=== PATIENT | female | born 1965 | race Two or more races ===

== ENCOUNTER 2016-05-30 11:23 | Inpatient (IN) | payer OTHER ==
[~2016-05-30] VITALS: Ht 167.6 cm; Wt 82.5 kg
[2016-05-30 12:26] LABS: Basophils # (auto) 0 uL; Basophils % (auto) 0.4 % (0.0-2.0); DEFINITIVE VIEW TRANSMISSION; Eosinophils # (auto) 0.2 uL; Eosinophils % (auto) 2.5 % (0.0-7.0); Hematocrit 41.8 % (36.0-46.0); Hemoglobin 13.4 g/dL (12.2-16.2); Lymphocytes # (auto) 2.4 uL; Lymphocytes % (auto) 31.4 % (10.0-50.0); Mean Corpuscular Hemoglobin 25.1 pg (28.0-32.0); Mean Corpuscular Hgb Conc. 31.9 g/dL (32.0-36.0); Mean Corpuscular Volume 78.5 fL (80.0-100.0); Mean Platelet Volume 9.6 fL (7.4-10.4); Monocytes # (auto) 0.4 uL; Monocytes % (auto) 5.1 % (0.0-12.0); Neutrophils # (auto) 4.6 uL; Neutrophils % (auto) 60.6 % (37.0-80.0); Platelet Count (auto) 267 10^3/uL (140-450); Red Cell Distribution Width 14.5 % (11.6-16.0); White Blood Cell 7.7 10^3/uL (4.4-10.8)
[2016-05-30 12:52] LABS: Albumin 3.8 g/dL (3.4-5.0); BUN/Creatinine Ratio 10.4; Bilirubin, Total 0.4 mg/dL (0.2-1.0); Calcium 8.9 mg/dL (8.5-10.1); Magnesium 2.1 mg/dL (1.6-2.6); Total Protein 7.8 g/dL (6.4-8.2)
[2016-05-30 13:28] LABS: Urine Bilirubin Negative (Negative); Urine Blood Negative /uL (Negative); Urine Color Yellow (Yellow); Urine Ketone Negative (Negative); Urine Nitrite Negative (Negative); Urine RBC 4 /hpf (0 - 4); Urine Squamous Epithelial Cell FEW /hpf (<5); Urine Urobilinogen Normal (Negative); Urine pH 5.5 (5.0-8.0)
[2016-05-30 13:30] LABS: Urine Glucose 4+ mg/dL (Normal)
[2016-05-30] MEDS ORDERED: SODIUM CHLORIDE 0.9% 1,000 ML IV ONE ×2 (15:55→17:41)
[2016-05-30] MEDS ORDERED: InsuLIN REG 1unit/0.01ml Soln (100units/ml) IV ONE ×2 (16:00→17:45)
[2016-05-30] MEDS ORDERED: cefTRIAXone 1GM/50ML D5W 50 ML IV ONE (19:45)
[2016-05-30] MEDS ORDERED: ONDANSETRON HCL 4 MG/2 ML VIAL IV PRN (20:00)
[2016-05-30] MEDS ORDERED: ACETAMINOPHEN 325 MG TAB PO PRN (20:00)
[2016-05-30] MEDS ORDERED: DOCUSATE SOD 100 MG CAP PO PRN (20:00)
[2016-05-30] MEDS ORDERED: DEXTROSE (50%) 50ML SYRG IV PRN (20:00)
[2016-05-30] MEDS ORDERED: hydrOXYzine PAMOATE 25 MG CAP PO PRN (20:00)
[2016-05-30] MEDS ORDERED: MORPHINE SULF INJ 2 MG/ML SYRINGE 1ML IV PRN (20:00)
[2016-05-30] MEDS ORDERED: MULTIPLE VITAMIN TAB PO SCH (20:15)
[2016-05-30] MEDS ORDERED: PANTOPRAZOLE 40 MG TAB PO ONE (20:15)
[2016-05-30] MEDS ORDERED: PANTOPRAZOLE 40 MG TAB PO SCH (20:15)
[2016-05-30] MEDS ORDERED: MULTIPLE VITAMIN TAB PO ONE (20:15)
[2016-05-30 22:00] VITALS: BP 113/69
[2016-05-30] MEDS ORDERED: FAMOTIDINE 20 MG TAB PO SCH (22:00)
[2016-05-30] MEDS: ACCU-CHEK COMFORT CURVE STRIP VI SCH (22:57)
[2016-05-30] MEDS: InsuLIN REG 1unit/0.01ml Soln (100units/ml) SC SCH (23:01)
[2016-05-30] MEDS: HYDROcodone-ACET 5/325MG TAB PO PRN (23:02)
[2016-05-30] MEDS: SODIUM CHLOR 0.9% PF (SALINE LOCK) 10ML VIAL IV SCH (23:04)
[2016-05-31] MEDS: ZOLPIDEM TARTRATE 5 MG TAB PO PRN ×2 (00:13→22:15)
[2016-05-31] MEDS ORDERED: LISI-275 PO (05:06)
[2016-05-31] MEDS ORDERED: METF-312 PO (05:06)
[2016-05-31] MEDS ORDERED: HYDR-3682 PO (05:06)
[2016-05-31] MEDS ORDERED: ZOLP10TA PO (05:06)
[2016-05-31 05:24] LABS: Basophils # (auto) 0 uL; Basophils % (auto) 0.5 % (0.0-2.0); DEFINITIVE VIEW TRANSMISSION; Eosinophils # (auto) 0.2 uL; Eosinophils % (auto) 3.2 % (0.0-7.0); Hematocrit 34.2 % (36.0-46.0); Hemoglobin 11.1 g/dL (12.2-16.2); Lymphocytes # (auto) 2.5 uL; Lymphocytes % (auto) 37.5 % (10.0-50.0); Mean Corpuscular Hemoglobin 25.7 pg (28.0-32.0); Mean Corpuscular Hgb Conc. 32.4 g/dL (32.0-36.0); Mean Corpuscular Volume 79.4 fL (80.0-100.0); Mean Platelet Volume 9.8 fL (7.4-10.4); Monocytes # (auto) 0.4 uL; Monocytes % (auto) 6.2 % (0.0-12.0); Neutrophils # (auto) 3.5 uL; Neutrophils % (auto) 52.6 % (37.0-80.0); Platelet Count (auto) 221 10^3/uL (140-450); Red Cell Distribution Width 14.6 % (11.6-16.0); White Blood Cell 6.7 10^3/uL (4.4-10.8)
[2016-05-31 05:30] VITALS: BP 113/68
[2016-05-31 05:38] LABS: BUN/Creatinine Ratio 13.1; Bilirubin, Total 0.3 mg/dL (0.2-1.0); Calcium 7.9 mg/dL (8.5-10.1); Potassium 3.6 mmol/L (3.5-5.1); Total Protein 6.1 g/dL (6.4-8.2)
[2016-05-31] MEDS: SODIUM CHLOR 0.9% PF (SALINE LOCK) 10ML VIAL IV SCH ×3 (06:25→22:15)
[2016-05-31] MEDS: ACCU-CHEK COMFORT CURVE STRIP VI SCH ×4 (06:25→22:15)
[2016-05-31] MEDS: InsuLIN REG 1unit/0.01ml Soln (100units/ml) SC SCH ×4 (06:25→22:26)
[2016-05-31 08:00] VITALS: BP 103/65
[2016-05-31] MEDS: MULTIPLE VITAMIN TAB PO SCH (08:27)
[2016-05-31] MEDS: PANTOPRAZOLE 40 MG TAB PO SCH (08:27)
[2016-05-31] MEDS: LISINOPRIL 20 MG TAB PO SCH (08:28)
[2016-05-31] MEDS: metFORMIN HYDROCHLORIDE 500 MG TAB PO SCH ×2 (08:28→17:45)
[2016-05-31] MEDS: cefTRIAXone 1GM/50ML D5W 50 ML IV SCH (08:28)
[2016-05-31] MEDS: HYDROcodone-ACET 5/325MG TAB PO PRN (08:46)
[2016-05-31 12:30] VITALS: BP 102/70
[2016-05-31 17:11] VITALS: BP 104/69
[2016-05-31] MEDS: Boost Glucose Control 8 Ounces PO SCH (18:00)
[2016-05-31] MEDS ORDERED: PSEUDOEPHEDRINE HCL 30 MG TAB PO PRN (18:15)
[2016-05-31 22:00] VITALS: BP 115/66
[2016-05-31] MEDS ORDERED: hydrOXYzine PAMOATE 25 MG CAP PO SCH (22:00)
[2016-06-01 05:00] VITALS: BP 112/68
[2016-06-01 06:07] LABS: Basophils # (auto) 0 uL; Basophils % (auto) 0.8 % (0.0-2.0); DEFINITIVE VIEW TRANSMISSION; Eosinophils # (auto) 0.2 uL; Eosinophils % (auto) 3.7 % (0.0-7.0); Hematocrit 37.4 % (36.0-46.0); Lymphocytes # (auto) 2.5 uL; Lymphocytes % (auto) 40.7 % (10.0-50.0); Mean Corpuscular Hemoglobin 25.7 pg (28.0-32.0); Mean Corpuscular Volume 80.1 fL (80.0-100.0); Mean Platelet Volume 9.7 fL (7.4-10.4); Monocytes # (auto) 0.4 uL; Monocytes % (auto) 6.5 % (0.0-12.0); Neutrophils % (auto) 48.3 % (37.0-80.0); Platelet Count (auto) 206 10^3/uL (140-450); Red Cell Distribution Width 13.4 % (11.6-16.0); White Blood Cell 6.1 10^3/uL (4.4-10.8)
[2016-06-01] MEDS: SODIUM CHLOR 0.9% PF (SALINE LOCK) 10ML VIAL IV SCH ×2 (06:22→14:00)
[2016-06-01] MEDS: ACCU-CHEK COMFORT CURVE STRIP VI SCH ×2 (06:22→11:13)
[2016-06-01] MEDS: InsuLIN REG 1unit/0.01ml Soln (100units/ml) SC SCH ×2 (06:26→11:14)
[2016-06-01 06:37] LABS: Potassium 4.1 mmol/L (3.5-5.1)
[2016-06-01 06:43] LABS: Albumin 3.1 g/dL (3.4-5.0); BUN/Creatinine Ratio 13.3; Bilirubin, Total 0.2 mg/dL (0.2-1.0); Calcium 8.1 mg/dL (8.5-10.1); Total Protein 6.6 g/dL (6.4-8.2)
[2016-06-01] MEDS: Boost Glucose Control 8 Ounces PO SCH ×2 (07:43→11:41)
[2016-06-01 08:30] VITALS: BP 128/76
[2016-06-01] MEDS: metFORMIN HYDROCHLORIDE 500 MG TAB PO SCH (08:44)
[2016-06-01] MEDS: cefTRIAXone 1GM/50ML D5W 50 ML IV SCH (09:22)
[2016-06-01] MEDS: MULTIPLE VITAMIN TAB PO SCH (09:24)
[2016-06-01] MEDS: PANTOPRAZOLE 40 MG TAB PO SCH (09:24)
[2016-06-01] MEDS: LISINOPRIL 20 MG TAB PO SCH (09:25)
[2016-06-01 13:00] VITALS: BP 121/85
[2016-06-01 18:15] VITALS: BP 121/85
== END 2016-06-01 18:15 | disposition home or self-care (01) | DRG 463 ==
LOC: ER 11:25 → OVERFLOW 11:26 → WEST WING 21:25
PROVIDERS: ADMIT Internal Medicine; ATTEND Internal Medicine
DX: N39.0 Urinary tract infection, site not specified (principal); E11.21 Type 2 diabetes mellitus with diabetic nephropathy; E44.0 Moderate protein-calorie malnutrition; E11.65 Type 2 diabetes mellitus with hyperglycemia; E11.22 Type 2 diabetes mellitus with diabetic chronic kidney disease; E87.1 Hypo-osmolality and hyponatremia; F32.9 Major depressive disorder, single episode, unspecified; F41.9 Anxiety disorder, unspecified; I12.9 Hypertensive chronic kidney disease with stage 1 through stage 4 chronic kidney disease, or unspecified chronic kidney disease; N92.1 Excessive and frequent menstruation with irregular cycle; N18.2 Chronic kidney disease, stage 2 (mild); Z90.49 Acquired absence of other specified parts of digestive tract; Z98.890 Other specified postprocedural states; Z79.899 Other long term (current) drug therapy
CPT/HCPCS: 36415; 74176; 76705; 76856; 80053; 81001; 81025; 82150; 82962; 83036; 83540; 83690; 83735; 84484; 85025; 87086; 93005; 96361; 96365; 96375; 96376; J0696; J1815